=== PATIENT | female | born 1995 | race African-American/Black ===

== ENCOUNTER 2017-07-28 18:39 | Emergency (ER) ==
[2017-07-28 18:48] VITALS: BP 145/89; TEMP 98.5; BMI 29.9
[2017-07-28] MEDS ORDERED: DECADRON 4 MG/ML SDV IM STA (19:07)
--- NOTE | 2017-07-28 19:10 | ED.PDOC ---
General ED Provider: Dr. CIERRA PARRISH Chief Complaint: Respiratory Complaint Stated Complaint: coughing, congested, sinus drainage, ears full. Time Seen by Physician: 19:08 Mode of Arrival: Walk-In Information Source: Patient Nursing and Triage Documentation Reviewed and Agree: Yes Respiratory Complaint Exam - Respiratory Complaint/Exam Symptoms Are: Still present Timing: Constant Initial Severity: Mild Current Severity: Mild Location: Nose, Throat, Chest Character: Reports: Productive cough Aggravating: Reports: None Alleviating: Reports: None Associated Signs and Symptoms: Denies: Rapid breathing, Dyspnea, Fever, Chills, Chest pain, Pleuritic chest pain, Wheezing, Hemoptysis, Dizziness, Calf pain, Calf swelling, Edema, URI, Nasal congestion, Hoarseness, Sinus discomfort, Vomiting, Sore throat, Weight loss, Decreased oral intake, Increased thirst, Increased appetite, Increased urination History of Healthcare-Acquired Pneumonia: No Related Surgical History: Reports: None Pulmonary Embolism Risk Factors: None Cardiac Risk Factors: Reports: None Pseudomonas Risk Factors: Reports: None Tuberculosis Risk Factors: Reports: None Status Asthmaticus Risk Factors: Reports: None Home Oxygen Use: No Recent Stress Test: No Recent Echo/LV Function: No Current Antibiotic Use: No Current Asthma Medication Use: No Respiratory Distress: None Inadequate Respiratory Effort: No Dysphagia Present: No Stridor Present: No JVD Present: No Retractions: Not Present Diminished Breath Sounds: No Prolonged Respiration: Inspiratory phase Sinus Tenderness: Frontal Grunting Respirations: No Kussmaul Respirations: No Differential Diagnoses: Bronchitis Review of Systems - Review Of Systems Constitutional: Reports: No symptoms Eyes: Reports: No symptoms Ears, Nose, Mouth, Throat: Reports: Nose discharge, Throat pain Respiratory: Reports: Cough Cardiac: Reports: No symptoms GI: Reports: No symptoms : Reports: No symptoms Musculoskeletal: Reports: No symptoms Skin: Reports: No symptoms Neurological: Reports: No symptoms Endocrine: Reports: No symptoms Hematologic/Lymphatic: Reports: No symptoms All Other Systems: Reviewed and Negative Past Medical History - Past Medical History Previously Healthy: Yes Endocrine: Reports: None Cardiovascular: Reports: None Respiratory: Reports: None Hematological: Reports: None Gastrointestinal: Reports: None Genitourinary: Reports: None Neuro/Psych: Reports: None Musculoskeletal: Reports: None Cancer: Reports: None Last Menstrual Period: NOW - Surgical History General Surgical History: Reports: None - Family History Family History: Reports: None - Social History Smoking Status: Never smoker Hx Substance Use: No Alcohol Screening: None Physical Exam - Physical Exam Appearance: Well-appearing, No pain distress, Well-nourished Eyes: RAYSA, EOMI, Conjunctiva clear ENT: Ears normal, Nose normal, Oropharynx normal Respiratory: Airway patent, Breath sounds clear, Breath sounds equal, Respirations nonlabored Cardiovascular: RRR, Pulses normal, No rub, No murmur GI/: Soft, Nontender, No masses, Bowel sounds normal, No Organomegaly Musculoskeletal: Normal strength, ROM intact, No edema, No calf tenderness Skin: Warm, Dry, Normal color Neurological: Sensation intact, Motor intact, Reflexes intact, Cranial nerves intact, Alert, Oriented Psychiatric: Affect appropriate, Mood appropriate Critical Care Note - Critical Care Note Total Time (mins): 0 Course - Course Orders, Labs, Meds: Orders Category Date Time Status Dexamethasone 4 mg/ml Inj [Decadron 4 mg/ml Sdv] MEDS 07/28/17 19:07 Stat 4 mg IM ONCE STA Vital Signs: Temp Pulse Resp BP Pulse Ox 07/28/17 18:39 98.5 F 99 H 18 145/89 H 97 Departure - Departure Time of Disposition: 19:11 Disposition: HOME SELF-CARE Discharge Problem: URTI (acute upper respiratory infection) Instructions: Upper Respiratory Infection (ED) Condition: Stable Pt referred to PMD for follow-up: Yes Additional Instructions: Increase hydration Tylenol prn Take medication with food. Prescriptions: Amoxicillin/Potassium Clav [Augmentin 500-125 mg Tab] 1 tab PO Q12HR #20 tablet Prednisone 10 mg PO BIDWM #14 tablet Allergies/Adverse Reactions: Allergies No Known Allergies Allergy (Verified 07/28/17 18:43) Home Medications: Ambulatory Orders Amoxicillin/Potassium Clav [Augmentin 500-125 mg Tab] 1 tab PO Q12HR #20 tablet 07/28/17 Norgestimate-Ethinyl Estradiol [Mononessa 28 Tablet] 1 each PO DAILY 07/28/17 Prednisone 10 mg PO BIDWM #14 tablet 07/28/17 Disposition Discussed With: Patient
== END 2017-07-28 19:37 | disposition home or self-care (01) ==
LOC: ED 18:39
DX: J06.9 Acute upper respiratory infection, unspecified (principal)
CPT/HCPCS: 96372; 99282

== ENCOUNTER 2017-11-07 10:11 | Emergency (ER) ==
[2017-11-07 10:17] VITALS: BP 123/79; TEMP 97.7; BMI 30.7
--- NOTE | 2017-11-07 10:50 | ED.PDOC ---
General ED Provider: Dr. JESSIKA ROSS Chief Complaint: Sore Throat Stated Complaint: Pateint complains of sore throat and body ache for 4 days. Time Seen by Physician: 10:25 Mode of Arrival: Walk-In Information Source: Patient Exam Limitations: No limitations Nursing and Triage Documentation Reviewed and Agree: Yes Review of Systems - Review Of Systems Constitutional: Reports: No symptoms Eyes: Reports: No symptoms Ears, Nose, Mouth, Throat: Reports: Throat pain Respiratory: Reports: No symptoms Cardiac: Reports: No symptoms GI: Reports: No symptoms : Reports: No symptoms Musculoskeletal: Reports: No symptoms Skin: Reports: No symptoms Neurological: Reports: No symptoms Endocrine: Reports: No symptoms Hematologic/Lymphatic: Reports: No symptoms All Other Systems: Reviewed and Negative Past Medical History - Past Medical History Previously Healthy: Yes Endocrine: Reports: None Cardiovascular: Reports: None Respiratory: Reports: None Hematological: Reports: None Gastrointestinal: Reports: None Genitourinary: Reports: None Neuro/Psych: Reports: None Musculoskeletal: Reports: None Cancer: Reports: None Last Menstrual Period: 10/22/2017 - Surgical History General Surgical History: Reports: None - Family History Family History: Reports: None - Social History Smoking Status: Never smoker Hx Substance Use: No Alcohol Screening: None - Immunizations Tetanus Shot up to Date: Yes Physical Exam - Physical Exam Appearance: Ill-appearing, Obese Eyes: RAYSA, EOMI, Conjunctiva clear ENT: Erythema Neck: Supple Respiratory: Airway patent, Breath sounds clear, Breath sounds equal, Respirations nonlabored Cardiovascular: RRR, Pulses normal, No rub, No murmur GI/: Soft, Nontender, No masses, Bowel sounds normal, No Organomegaly Musculoskeletal: Normal strength, ROM intact, No edema, No calf tenderness Skin: Warm, Dry, Normal color Neurological: Sensation intact, Motor intact, Reflexes intact, Cranial nerves intact, Alert, Oriented Psychiatric: Affect appropriate, Mood appropriate Critical Care Note - Critical Care Note Total Time (mins): 0 Course - Course Orders, Labs, Meds: Orders Category Date Time Status FLU A & B RAPID TEST [RAPID FLU A/B] Stat LAB 11/07/17 10:35 Received STREP SCREEN Stat LAB 11/07/17 10:35 Received Vital Signs: Temp Pulse Resp BP Pulse Ox 11/07/17 10:12 97.7 F 93 H 16 123/79 96 Departure - Departure Time of Disposition: 11:27 Disposition: HOME SELF-CARE Discharge Problem: Viral illness Pharyngitis Qualifiers: Pharyngitis/tonsillitis etiology: other specified organisms Qualified Code(s): J02.8 - Acute pharyngitis due to other specified organisms Instructions: Pharyngitis (ED), Viral Syndrome (ED) Condition: Fair Pt referred to PMD for follow-up: Yes Additional Instructions: Push fluids Take over the counter Motrin or Tylenol. Follow up with PCP in 3 days Allergies/Adverse Reactions: Allergies No Known Allergies Allergy (Verified 11/07/17 10:20) Home Medications: Ambulatory Orders Norgestimate-Ethinyl Estradiol [Mononessa 28 Tablet] 1 each PO DAILY 07/28/17 Disposition Discussed With: Patient, Family
[2017-11-07] MEDS ORDERED: TYLENOL PO STA (10:52)
[2017-11-07 11:00] LABS: FLU INTERNAL QC INTERNAL QC VALID; RAPID FLU A NEGATIVE (NEGATIVE); RAPID FLU B NEGATIVE (NEGATIVE)
== END 2017-11-07 11:40 | disposition home or self-care (01) ==
LOC: ED 10:11
DX: B34.9 Viral infection, unspecified (principal); J02.9 Acute pharyngitis, unspecified
CPT/HCPCS: 87651; 87804; 87880; 99283